=== PATIENT | female | born 1935 | race Two or more races ===

== ENCOUNTER 2019-05-07 20:01 | Emergency (ER) | payer OTHER ==
[2019-05-07] MEDS ORDERED: Sodium Chloride 0.9% 1,000 ML IV ONE ×2 (20:22→21:05)
--- NOTE | 2019-05-07 20:26 | ED Physician Chart ---
ED Chief Complaint/HPI - Patient Information Date Seen:: 05/07/19 Time Seen:: 20:23 Chief Complaint:: dizziness History of Present Illness:: 84 yr old female with nv yest unable to take much fluids with dizziness and lightheadedness headache Allergies:: Allergies Allergy/AdvReac Type Severity Reaction Status Date / Time No Known Allergies Allergy Verified 05/07/19 20:07 Vitals:: Vital Signs - 8 hr 05/07/19 20:10 Temp 99.3 F HR 104 RR 18 BP 88/58 O2 Sat % 98 ED Review of Systems - Review of Systems General/Constitutional: No fever Skin: No skin lesions Head: Headache Eyes: No loss of vision ENT: No earache Neck: No neck pain Cardio Vascular: No chest pain Pulmonary: No SOB GI: Vomiting G/U: No dysuria Psychiatric: No prior psych history Hematopoietic: No bruising Allergic/Immuno: No urticaria Neurological: No syncope Family Medical History - Family Member Mother History Unknown: Yes ED Septic Shock - . Is Septic Shock (SBP<90, OR Lactate>4 mmol\L) present?: No - <6hrs of presentation: Vital Signs: Vital Signs - 8 hr 05/07/19 20:10 Temp 99.3 F HR 104 RR 18 BP 88/58 O2 Sat % 98 ED Reassessment (Disposition) - Reassessment Reassessment:: dizziness headache vomiting - Patient Disposition Condition at Disposition:: Stable
[2019-05-07 20:48] LABS: EOSINOPHILE ABSOLUTE 0.1 Th/cmm (0.1-0.4); LYMPHOCYTE ABSOLUTE 1.4 Th/cmm (1.5-3.0); MONOCYTE ABSOLUTE 0.5 Th/cmm (0.3-1.0)
[2019-05-07 20:54] LABS: RED BLOOD COUNT 2.45 Mil/cmm (3.80-5.20); WHITE BLOOD COUNT 11.5 Th/cmm (4.8-10.8)
[2019-05-07 20:55] LABS: % LYMPHOCYTES 12.6 % (20.0-50.0); % NEUTROPHILS 81.7 % (40.0-80.0); HEMATOCRIT 23.9 % (41.0-60); MEAN CELL VOLUME 97.5 fl (81-100); MEAN CORPUSCULAR HEMOGLOBIN 32.8 pg (27.0-31.0); MEAN CORPUSCULAR HGB CONC 33.7 pg (28.0-36.0); PLATELET COUNT 295 Th/cmm (150-400); RED CELL DISTRIBUTION WIDTH 13.3 % (11.5-20.0)
[2019-05-07 20:56] LABS: % BASOPHILS 0.5 % (0.0-2.0); % EOSINOPHILS 0.6 % (0.0-5.0); % MONOCYTES 4.6 % (2.0-10.0); BASOPHILE ABSOLUTE 0.1 Th/cumm (0-0.2); NEUTROPHILE ABSOLUTE 9.4 Th/cmm (1.8-8.0)
[2019-05-07 21:08] LABS: ALBUMIN 3.3 gm/dL (3.7-5.3); ALKALINE PHOSPHATASE 31 U/L (34-104); ANION GAP 11.9 (7.0-16.0); BILIRUBIN,TOTAL 0.3 mg/dL (0.3-1.0); BUN - UREA NITROGEN 45 mg/dL (7-25); CALCIUM SERUM 8.9 mg/dL (8.6-10.3); CARBON DIOXIDE 23.1 mEq/L (21.0-31.0); CHLORIDE 109 mEq/L (98-107); GLUCOSE 126 mg/dL (70-105); SGOT 14 U/L (13-39); SGPT/ALT 5 U/L (7-52); SODIUM SERUM 140 mEq/L (136-145); TOTAL PROTEIN,SERUM 6.5 gm/dL (6.0-8.3)
[2019-05-07 21:52] LABS: URINE SOURCE CLEAN C
[2019-05-07 21:54] LABS: URINE BILIRUBIN NEGATIVE (NEGATIVE); URINE BLOOD NEGATIVE (NEGATIVE); URINE CLARITY CLEAR (CLEAR); URINE COLOR YELLOW; URINE GLUCOSE (UA) NEGATIVE (NEGATIVE); URINE KETONE NEGATIVE (NEGATIVE); URINE LEUKOCYTE ESTERASE SMALL (NEGATIVE); URINE MICROSCOPIC INDICATED? YES; URINE NITRATE NEGATIVE (NEGATIVE); URINE PH 5.5 (4.6 - 8.0); URINE PROTEIN NEGATIVE (NEGATIVE); URINE UROBILINOGEN 0.2 E.U./dL (0.2 - 1.0)
[2019-05-07 21:57] LABS: URINE RBC 0-2 /hpf (0-5)
[2019-05-07 21:58] LABS: URINE BACTERIA 1+ /hpf (NONE SEEN); URINE COARSE GRANULAR CAST 0-2 /lpf (NONE SEEN); URINE EPITHELIAL CELLS FEW /lpf (FEW)
--- NOTE | 2019-05-08 08:28 | Diagnostic Imaging Report ---
CT scan abdomen and pelvis without intravenous contrast HISTORY: Pain Total DLP equals 518 CTDI equals 11.6 Axial sections were obtained from the xiphoid process down to the pubic symphysis. Limited sections the lower chest demonstrate cardiomegaly. There is a small hiatal hernia. The liver exhibits a normal size with a homogeneous parenchyma. No focal lesions. The spleen appears normal. No focal abnormality seen within the pancreas. An approximate 1.0 cm cyst is noted in the anterior lateral cortex of the right kidney. No hydronephrosis. A 3.5 cm cyst extends off the lateral cortex of the left kidney. No hydronephrosis. There is suggestion of thickening about the gastric wall. Findings may be associated with incomplete distention. If indicated, endoscopy would provide further assessment and evaluation. The exam of the pelvis demonstrates preservation of normal fat planes. No abnormal soft tissue masses or abnormal fluid collections. Multiple colonic diverticula are seen. IMPRESSION: 1. Questionable thickening about the gastric wall. If indicated, endoscopy would provide for further assessment and evaluation 2. Small hiatal hernia 3. Diverticulosis 4. Atherosclerotic vascular changes 5. Cardiomegaly
--- NOTE | 2019-05-08 08:28 | Diagnostic Imaging Report ---
CT scan of the brain without intravenous contrast HISTORY: Headache Total DLP equals 630 CTDI equals 36.1 Axial sections were obtained from the base of the skull to the vertex. There is a normal ventricular system size for age. There is prominence of cerebral sulci and subarachnoid consistent reflecting mild atrophy. No acute parenchymal abnormalities. No acute cerebral hemorrhage. Bilateral basal ganglia calcification is noted. No extra-axial masses or abnormal fluid collections. Atherosclerotic calcification seen in the region of the vertebral arteries at the base of the skull. IMPRESSION: 1. No acute abnormalities 2. Mild generalized cerebral atrophy 3. Atherosclerotic vascular changes
--- NOTE | 2019-05-08 08:32 | Diagnostic Imaging Report ---
Portable chest x-ray HISTORY: Shortness of breath. The heart is enlarged. Atherosclerotic calcification seen in the aorta. No acute focal pulmonary processes. No hilar or mediastinal abnormalities. IMPRESSION: 1. No acute focal pulmonary processes 2. Cardiomegaly with atherosclerotic vascular changes
== END 2019-05-07 22:28 | disposition home or self-care (01) ==
LOC: ER 20:01
DX: R42 Dizziness and giddiness (principal); R51 Headache; R11.10 Vomiting, unspecified; I10 Essential (primary) hypertension; Z98.890 Other specified postprocedural states
CPT/HCPCS: 99284; 96374; 93005; 71045; 70450; 74176; 84484; 36415; 83605; 84443; 85025; 81001; 80053; 87040 ×2; J2405; J7040; J7030